=== PATIENT | male | born 1955 | race Caucasian/White ===

== ENCOUNTER 2022-12-15 09:46 | Outpatient (CLI) | payer OTHER | END 2022-12-15 09:47 | disposition home or self-care (01) | LOC: CSHRAD 09:46 | PROVIDERS: ATTEND Internal Medicine Gastroenterology | DX: R63.4 Abnormal weight loss (principal); D64.9 Anemia, unspecified; I25.10 Atherosclerotic heart disease of native coronary artery without angina pectoris | CPT/HCPCS: 71046 ==

== ENCOUNTER 2022-12-26 08:28 | Outpatient (CLI) | payer OTHER ==
[2022-12-26] MEDS ORDERED: Iopamidol 300 61% 100 ML VIAL FS ONE (11:17)
== END 2022-12-26 08:29 | disposition home or self-care (01) ==
LOC: CSHCT 08:28
PROVIDERS: ATTEND Internal Medicine Gastroenterology
DX: R63.4 Abnormal weight loss (principal); D18.03 Hemangioma of intra-abdominal structures
CPT/HCPCS: 74177; 82565; Q9967